=== PATIENT | female | born 1990 | race African-American/Black ===

== ENCOUNTER 2018-07-11 03:18 | Emergency (ER) | payer SELFPAY ==
[~2018-07-11] VITALS: Ht 167.6 cm; Wt 115.0 kg
[~2018-07-11 03:18] MED LIST: AMLODIPINE10 MG PO; AVIDOXY100 MG PO; CLINDAMYCIN11 EX; CONCEPT OB PO; KENALOG15 GM/TUBE EX; MACRODANTIN100 MG OR; METOPROL TAR25 M1 PO; MIRENA IU; MONISTAT 72 % VA; MULTI VIT PO; MYCELEX VA; NAPROSYN500 MG OR; NAPROSYN500 MG PO; NO MEDS; TRAMADOL HCL50 MG PO; TUBERSOL5 MG/0.1 M ID
[2018-07-11 03:38] LABS: URINE BILIRUBIN - DIPSTICK NEGATIVE (NEGATIVE); URINE BLOOD DIPSTICK LARGE (NEGATIVE); URINE COLOR YELLOW; URINE GLUCOSE - DIPSTICK NEGATIVE (NEGATIVE); URINE KETONE NEGATIVE (NEGATIVE); URINE NITRITE - DIPSTICK NEGATIVE (Negative); URINE PH 6.5 (4.5-8.0); URINE PROTEIN - DIPSTICK 30 mg/dL (NEG-TRACE); URINE SPECIFIC GRAVITY 1.025
[2018-07-11 03:39] LABS: URINE CLARITY TURBID; URINE LEUK ESTERASE LARGE (NEGATIVE)
[2018-07-11 03:46] LABS: URINE BACTERIA FEW hpf; URINE SQUAMOUS EPITHELIAL CELL FEW EPI/hpf (0-FEW); URINE WBC 50-100 WBC/hpf (0-5)
[2018-07-11] MEDS ORDERED: BACTRIM DS1 TAB PO (03:57)
[2018-07-11 04:11] VITALS: BP 150/89
== END 2018-07-11 04:12 | disposition home or self-care (01) | DRG 690 ==
LOC: ED 03:18
PROVIDERS: Family Medicine
DX: N30.00 Acute cystitis without hematuria (principal)